=== PATIENT | male | born 1960 | race American Indian/Alaskan Native ===

== ENCOUNTER 2021-12-02 09:18 | Outpatient (CLI) | payer OTHER ==
--- NOTE | 2021-12-02 10:07 | XRay Report ---
XR spine lumbosacral 2-3V INDICATION / CLINICAL INFORMATION: BACK PAIN. COMPARISON: None available. FINDINGS: BONES/JOINT(S): No acute fracture or subluxation. No significant degenerative changes. No focal bone erosions or focal osteopenia to suggest inflammatory arthropathy. SOFT TISSUES: No significant abnormality. ADDITIONAL FINDINGS: None. Signer Name: Alonso Renee MD Signed: 12/02/2021 10:02 AM Workstation Name: [id number]
--- NOTE | 2021-12-02 10:30 | XRay Report ---
XR shoulder BILAT 2+V INDICATION / CLINICAL INFORMATION: BILATERAL SHOULDER PAIN. COMPARISON: None available. FINDINGS: BONES/JOINT(S): No acute fracture or subluxation. 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 No focal bone erosions or focal osteopenia to suggest inflammatory arthropathy. SOFT TISSUES: No significant abnormality. ADDITIONAL FINDINGS: None. Signer Name: Alonso Renee MD Signed: 12/02/2021 10:25 AM Workstation Name: [id number]
== END 2021-12-02 09:19 | disposition home or self-care (01) ==
LOC: XRAY 09:18
PROVIDERS: ATTEND Internal Medicine
DX: M19.012 Primary osteoarthritis, left shoulder (principal); M19.011 Primary osteoarthritis, right shoulder; M54.50 Low back pain, unspecified
CPT/HCPCS: 72100